=== PATIENT | male | born 1975 | race Caucasian/White ===

== ENCOUNTER 2018-02-05 02:52 | Emergency (ER) | payer OTHER ==
[2018-02-05] MEDS ORDERED: Ketorolac 30 MG/ML SDV IVPUSH ONE (03:02)
[2018-02-05] MEDS ORDERED: Ondansetron 4 MG/2 ML SDV IVPUSH ONE (03:02)
[2018-02-05] MEDS ORDERED: Sodium Chloride 0.9% 1,000 ML IV ONE (03:02)
[2018-02-05 03:40] LABS: CHLORIDE,CL 103 mmol/L (98-107); SODIUM,NA 140 mmol/L (136-148)
[2018-02-05] MEDS ORDERED: Tamsulosin 0.4 MG Cap.ER PO ONE (04:42)
[2018-02-05] MEDS ORDERED: HYDROmorphone 1 MG/ML Syringe IVPUSH ONE (04:50)
--- NOTE | 2018-02-05 05:13 | EDM.PDOC ---
ED HPI GENERAL MEDICAL PROBLEM - General Chief Complaint: Abdominal Pain Stated Complaint: RIGHT ABDOMINAL PAIN Time Seen by Provider: 02/05/18 04:41 - History of Present Illness INITIAL COMMENTS - FREE TEXT/NARRATIVE: HISTORY AND PHYSICAL: History of present illness: Patient's 42-year-old male sensory concern of right-sided abdominal pains came on somewhat acutely with associated nausea he denies trauma denies fever chills eyes other concern. He has no history of urolithiasis Review of systems: As per history of present illness and below otherwise all systems reviewed and negative. Past medical history: As per history of present illness and as reviewed below otherwise noncontributory. Surgical history: As per history of present illness and as reviewed below otherwise noncontributory. Social history: No reported history of drug or alcohol abuse. Family history: As per history of present illness and as reviewed below otherwise noncontributory. Physical exam: HEENT: Atraumatic, normocephalic, pupils reactive, negative for conjunctival pallor or scleral icterus, mucous membranes moist, throat clear, neck supple, nontender, trachea midline. Lungs: Clear to auscultation, breath sounds equal bilaterally, chest nontender. Heart: S1S2, regular, negative for clicks, rubs, or JVD. Abdomen: Soft, nondistended, nonlocalized right-sided Negative for masses or hepatosplenomegaly. Right-sided costovertebral tenderness. Pelvis: Stable nontender. Genitourinary: Deferred. Rectal: Deferred. Extremities: Atraumatic, negative for cords or calf pain. Neurovascular unremarkable. Neuro: Awake, alert, oriented. Cranial nerves II through XII unremarkable. Cerebellum unremarkable. Motor and sensory unremarkable throughout. Exam nonfocal. Diagnostics: CBC CMP UA urine culture and sensitivity CT abdomen and pelvis Therapeutics: Saline 1 L bolus Toradol 30 mg IV Zofran 4 mg IV Flomax 0.4 mg IV Dilaudid 1 mg IV Impression: #1 right-sided abdominal pain #2 ureterolithiasis Definitive disposition and diagnosis as appropriate pending reevaluation and review of above. Abdomen Pain Score (Numeric/FACES): 1 - Related Data Allergies Allergy/AdvReac Type Severity Reaction Status Date / Time No Known Allergies Allergy Verified 02/05/18 03:07 Home Meds: Home Meds . [No Known Home Meds] 02/05/18 [History] Past Medical History - Past Health History Medical/Surgical History: Denies Medical/Surgical History Social & Family History - Family History Family Medical History: Noncontributory - Tobacco Use Smoking Status *Q: Never Smoker - Caffeine Use Caffeine Use: Reports: Coffee, Soda - Recreational Drug Use Recreational Drug Use: No ED ROS GENERAL - Review of Systems Review Of Systems: ROS reveals no pertinent complaints other than HPI. ED EXAM, GENERAL - Physical Exam Exam: See Below (Dictation) Course - Vital Signs Last Recorded V/S: Last Vital Signs Temp 36.7 C 02/05/18 03:04 Pulse 66 02/05/18 04:39 Resp 18 02/05/18 04:39 BP 117/70 02/05/18 04:39 Pulse Ox 96 02/05/18 04:39 - Orders/Labs/Meds Orders: Active Orders 24 hr Category Date Time Status EKG 12 Lead [EKG Documentation Completion] [RC] STAT Care 02/05/18 03:06 Active Abdomen Pelvis wo Cont [CT] Stat Exams 02/05/18 03:02 Taken UA W/MICROSCOPIC [URIN] Stat Lab 02/05/18 03:00 Ordered Labs: Laboratory Tests 02/05/18 02/05/18 02/05/18 Range/Units 03:00 03:00 03:00 WBC 7.58 (4.0-11.0) K/uL RBC 5.21 (4.50-5.90) M/uL Hgb 15.6 (13.0-17.0) g/dL Hct 44.7 (38.0-50.0) % MCV 85.8 (80.0-98.0) fL MCH 29.9 (27.0-32.0) pg MCHC 34.9 (31.0-37.0) g/dL RDW Std Deviation 41.1 (28.0-62.0) fl RDW Coeff of Rupesh 13 (11.0-15.0) % Plt Count 272 (150-400) K/uL MPV 8.90 (7.40-12.00) fL Neut % (Auto) 30.8 L (48.0-80.0) % Lymph % (Auto) 58.0 H (16.0-40.0) % [place] % (Auto) 7.8 (0.0-15.0) % Eos % (Auto) 2.9 (0.0-7.0) % Baso % (Auto) 0.5 (0.0-1.5) % Neut # (Auto) 2.3 (1.4-5.7) K/uL Lymph # (Auto) 4.4 H (0.6-2.4) K/uL [place] # (Auto) 0.6 (0.0-0.8) K/uL Eos # (Auto) 0.2 (0.0-0.7) K/uL Baso # (Auto) 0.0 (0.0-0.1) K/uL Nucleated RBC % 0.0 /100WBC Nucleated RBCs # 0 K/uL Sodium 140 (136-148) mmol/L Potassium 3.9 (3.5-5.1) mmol/L Chloride 103 (98-107) mmol/L Carbon Dioxide 26.1 (21.0-32.0) mmol/L BUN 17 (7.0-18.0) mg/dL Creatinine 1.2 (0.8-1.3) mg/dL Est Cr Clr Drug Dosing 88.02 mL/min Estimated GFR (MDRD) > 60.0 ml/min Glucose 133 H (74-106) mg/dL Calcium 8.7 (8.5-10.1) mg/dL Total Bilirubin 0.4 (0.2-1.0) mg/dL AST 24 (15-37) IU/L ALT 37 (14-63) IU/L Alkaline Phosphatase 70 (46-116) U/L Total Protein 7.7 (6.4-8.2) g/dL Albumin 4.2 (3.4-5.0) g/dL Globulin 3.5 (2.0-3.5) g/dL Albumin/Globulin Ratio 1.2 L (1.3-2.8) Lipase 159 (73-393) U/L Urine Color YELLOW Urine Appearance SLT CLOUDY Urine pH 6.0 (5.0-8.0) Ur Specific [place] >= 1.030 (1.001-1.035) Urine Protein 30 (NEGATIVE) mg/dL Urine Glucose (UA) NEGATIVE (NEGATIVE) mg/dL Urine Ketones NEGATIVE (NEGATIVE) mg/dL Urine Occult Blood LARGE H (NEGATIVE) Urine Nitrite NEGATIVE (NEGATIVE) Urine Bilirubin NEGATIVE (NEGATIVE) Urine Urobilinogen 0.2 (<2.0) EU/dL Ur Leukocyte Esterase NEGATIVE (NEGATIVE) Urine RBC 100-180 (0-2/HPF) Urine WBC 0-2 (0-5/HPF) Ur Epithelial Cells NOT SEEN (NONE-FEW) Urine Bacteria FEW (NEGATIVE) Urine Mucus FEW (NONE-MOD) Meds: Medications Discontinued Medications Generic Name Dose Route Start Last Admin Trade Name Tiff PRN Reason Stop Dose Admin Hydromorphone HCl 1 mg 02/05/18 04:50 02/05/18 05:00 Dilaudid IVPUSH 02/05/18 04:51 1 mg ONETIME ONE Administration Sodium Chloride 1,000 mls @ 999 mls/hr 02/05/18 03:02 02/05/18 03:13 Normal Saline IV 02/05/18 04:02 999 mls/hr .Bolus ONE Administration Ketorolac Tromethamine 30 mg 02/05/18 03:02 02/05/18 03:12 Toradol IVPUSH 02/05/18 03:03 30 mg ONETIME ONE Administration Ondansetron HCl 4 mg 02/05/18 03:02 02/05/18 03:12 Zofran IVPUSH 02/05/18 03:03 4 mg ONETIME ONE Administration Tamsulosin HCl 0.4 mg 02/05/18 04:42 02/05/18 04:59 Flomax PO 02/05/18 04:43 0.4 mg ONETIME ONE Administration Departure - Departure Time of Disposition: 05:11 Disposition: Home, Self-Care 01 Condition: Good Clinical Impression: Ureterolithiasis - Discharge Information Referrals: PCP,None [Primary Care Provider] - Additional Instructions: The following information is given to patients seen in the emergency department who are being discharged to home. This information is to outline your options for follow-up care. We provide all patients seen in our emergency department with a follow-up referral. The need for follow-up, as well as the timing and circumstances, are variable depending upon the specifics of your emergency department visit. If you don't have a primary care physician on staff, we will provide you with a referral. We always advise you to contact your personal physician following an emergency department visit to inform them of the circumstance of the visit and for follow-up with them and/or the need for any referrals to a consulting specialist. The emergency department will also refer you to a specialist when appropriate. This referral assures that you have the opportunity for followup care with a specialist. All of these measure are taken in an effort to provide you with optimal care, which includes your followup. Under all circumstances we always encourage you to contact your private physician who remains a resource for coordinating your care. When calling for followup care, please make the office aware that this follow-up is from your recent emergency room visit. If for any reason you are refused follow-up, please contact the [facility] emergency department at and asked to speak to the emergency department charge nurse. [facility] - Urology [address] [place] [id number] Hydrocodone Flomax Zofran as prescribed call schedule appointment with urology above return as needed as discussed push fluids - My Orders Last 24 Hours: My Active Orders 02/05/18 03:00 UA W/MICROSCOPIC [URIN] Stat 02/05/18 03:02 Abdomen Pelvis wo Cont [CT] Stat 02/05/18 03:06 EKG 12 Lead [EKG Documentation Completion] [RC] STAT - Assessment/Plan Last 24 Hours: My Active Orders 02/05/18 03:00 UA W/MICROSCOPIC [URIN] Stat 02/05/18 03:02 Abdomen Pelvis wo Cont [CT] Stat 02/05/18 03:06 EKG 12 Lead [EKG Documentation Completion] [RC] STAT
--- NOTE | 2018-02-05 15:18 | CT ---
EXAM DATE: 02/05/18 PATIENT'S AGE: 42 Patient: ROVERTO PALENCIA Facility: [place], [place] Site . Site : [id number] Study: CT Abdomen/Pelvis [id number]/8/2018 3:46:27 AM Ordering Physician: Doctor Harris Final Report: INDICATION: Abdominal pain TECHNIQUE: CT abdomen and pelvis without contrast. COMPARISON: None available FINDINGS: Lower chest: Unremarkable. Liver: Unremarkable. Spleen: Unremarkable. Pancreas: Unremarkable. Gallbladder and bile ducts: Unremarkable. Adrenal glands: Unremarkable. Kidneys: Mild right hydroureteronephrosis with a 3 millimeter calculus in the distal right ureter, just proximal to the UVJ. A 5.5 x 4.0 centimeter right renal upper pole near water attenuation low-density lesion, probably a cyst, containing several mural calcifications. A punctate nonobstructive left renal lower pole calcification without left hydronephrosis. GI tract: Unremarkable. Appendix is normal. Vascular structures: Unremarkable. Lymph nodes: Unremarkable. Miscellaneous: No free fluid or free air. A small fat containing left inguinal hernia. Pelvic Organs: Bladder wall thickening. Borderline prostatic prominence for the patient`s age. Bones: Unremarkable for age. IMPRESSION: Mild right obstructive uropathy due to a 3 millimeter distal right ureteral calculus. A punctate nonobstructive left renal calcification. Bladder wall thickening suggestive of cystitis. Correlate with urinalysis. A right renal upper pole cyst containing several mural calcifications. Followup with sonography. Dictated by Miki Oates MD @ 02/05/2018 4:32:13 AM Please note that all CT scans at this facility use dose modulation, iterative reconstruction, and/or weight-based dosing when appropriate to reduce radiation dose to as low as reasonably achievable. Dictated by: Miki Oates MD @ 02/05/2018 04:32:17 (Electronic Signature) Report Signed by Proxy. [facility]
== END 2018-02-05 05:40 | disposition home or self-care (01) ==
LOC: MW.ED 02:52
DX: N20.1 Calculus of ureter (principal)
CPT/HCPCS: 74176; 80053; 81001; 83690; 85025; 93005; 96361; 96374; 96375; 99284; A9270; J1170; J1885; J2405; J7040; 99283